=== PATIENT | male | born 1955 | race Two or more races ===

== ENCOUNTER 2022-09-20 07:45 | Inpatient (IN) | payer OTHER ==
[~2022-09-20] VITALS: Ht 180.3 cm; Wt 79.4 kg
[2022-09-20] MEDS ORDERED: AVAPRO150 MG PO (10:20)
[2022-09-20] MEDS ORDERED: CRESTOR10 MG PO (10:21)
[2022-09-25] MEDS ORDERED: BREO ELLIPTA I1 EACH (08:03)
[2022-09-25] MEDS ORDERED: DICLOFENAC SOD100 GM (08:04)
[2022-09-27] MEDS ORDERED: XARELTO10 MG PO (06:29)
[2022-09-27] MEDS ORDERED: INTEGRA PLUS C1 EACH PO (06:29)
[2022-09-27] MEDS ORDERED: OXYC1TAB9 PO (06:29)
[2022-09-27] MEDS ORDERED: BACTRIM DS TAB1 EACH PO (06:29)
== END 2022-09-27 13:50 | DRG 470 ==
LOC: SURG 09-25 05:15 → O/R 09-25 05:15 → SURH 09-25 07:00 → SURG 09-25 10:53
PROVIDERS: ADMIT Orthopaedic Surgery Sports Medicine; ATTEND Orthopaedic Surgery Sports Medicine
PROC: 0SRC0J9 Replacement of Right Knee Joint with Synthetic Substitute, Cemented, Open Approach (ICD-10-PCS; principal; 2022-09-25 07:00)
DX: M17.11 Unilateral primary osteoarthritis, right knee (principal); Z96.651 Presence of right artificial knee joint; I10 Essential (primary) hypertension